=== PATIENT | female | born 1955 | race Caucasian/White ===

== ENCOUNTER 2019-12-27 07:59 | Outpatient (CLI) | payer MEDICARE, SELFPAY ==
--- NOTE | ~2019-12-27 | MM_ITS ---
EXAMINATION: MM screening [facility] BI w mauricio HISTORY: Screening mammogram TECHNIQUE: Craniocaudal and mediolateral oblique 3-D tomosynthesis images were obtained and synthetic 2-D images were generated. CAD analysis was submitted and interpreted. COMPARISON: 08/31/2018, 07/07/2017, 06/19/2016 BREAST PARENCHYMAL COMPOSITION: The breasts are almost entirely fatty. FINDINGS: There is no evidence of suspicious mass, calcification, or architectural distortion to sugg est malignancy in either breast. There has been no suspicious interval change. IMPRESSION: 1. No mammographic evidence of malignancy. 2. Recommend routine screening mammography in one year. BI-RADS Category 1: Negative Reviewed, dictated and finalized at location A.
--- NOTE | ~2019-12-27 | DEXA_ITS ---
Bone Density Report Name: Gisela Fisher Age: 64 Sex: Female Ethnicity: White Date of : 1955 Indication: postmenopausal; height loss; prior fracture; Referring Provider: Darlin Kingston Study: Bone densitometry was performed. Exam Date: December 27, 2019 Accession number: [id number] Bone Density: Region BMD T-score Z-score Classification AP Spine (L1, L2, L3) 0.736 -2.6 -0.8 Osteoporosis Femoral Neck (Left) 0.521 -3.0 -1.4 Osteoporosis Total Hip (Left) 0.647 -2.4 -1.1 Osteopenia Total Hip Bilateral Avg 0.627 -2.6 -1.3 Osteoporosis Femoral Neck (Right) 0.576 -2.5 -0.9 Osteoporosis Total Hip (Right) 0.606 -2.8 -1.5 Osteoporosis World Health Organization criteria for BMD impression classify patients as: Normal (T-score at or above -1.0), Osteopenia (T-score between -1.0 and -2.5), or Osteoporosis (T-score at or below -2.5). 10-year Fracture Risk: FRAX not reported because: Some T-score for Spine Total or Hip Total or Femoral Neck at or below -2.5 Clinical Information Provided by Patient: Has had a low trauma fracture Has used the following medications: Vitamin D Patient maximum height was 64 Menopause Age: 43 Drinks caffeinated beverages Onset of menses at age 11 Number of children 2 Impression: The patient has established osteoporosis, based on the Left Femoral Neck T-score and the existence of a prior fracture. The patient has risk factors, including: previous fracture. Discussion: HIGH RISK OF FRACTURE. BONE DENSITY IS UNDESIRABLY LOW AT ONE OR MORE SKELETAL SITES, CONSISTENT WITH POSTMENOPAUSAL OSTEOPOROSIS. This patient's lowest T-score, in a patient who has previously fractured, meets the World Health Organization's (WHO) criteria for severe osteoporosis. In untreated patients, the risk of osteoporotic fracture increases approximately two-fold for each 1.0 SD decrease in T-score. Low bone density is not the only risk factor for fracture; also consider factors such as patient's age, frailty or poor health, risk of falling, risk of injury, previous osteoporotic fracture, family history of osteoporosis, cigarette smoking, low body weight, etc. Not everyone with low bone mineral density has osteoporosis; osteomalacia and other metabolic bone disorders should also be considered. Patients who have osteoporosis should be evaluated for specific diseases and conditions (secondary causes) that may cause or contribute to bone loss. The [place] Association of Clinical Endocrinologists (AACE) and National Osteoporosis Foundation (NOF) recommend pharmacologic intervention for all postmenopausal women whose T-score is in this range. The patient should follow a healthful lifestyle (good nutrition with adequate calcium and vitamin D, and appropriate weight-bearing exercise). Follow-Up: Consider a repeat BMD and Vertebral Fra
== END 2019-12-27 08:00 | disposition home or self-care (01) ==
LOC: ANHIMG 08:06
PROVIDERS: PCP Physician Assistant; Visit Provider Physician Assistant
DX: Z12.31 Encounter for screening mammogram for malignant neoplasm of breast (principal); Z78.0 Asymptomatic menopausal state; M81.0 Age-related osteoporosis without current pathological fracture; M85.852 Other specified disorders of bone density and structure, left thigh
CPT/HCPCS: 77063; 77067; 77080

== ENCOUNTER 2021-03-20 10:24 | Outpatient (CLI) | payer MEDICARE, SELFPAY ==
--- NOTE | ~2021-03-20 | MM_ITS ---
EXAMINATION: MM screening [facility] BI w mauricio HISTORY: Screening mammogram TECHNIQUE: Craniocaudal and mediolateral oblique 3-D tomosynthesis images were obtained and synthetic 2-D images were generated. CAD analysis was submitted and interpreted. COMPARISON: 12/27/2019, 09/08/2018, 07/07/2017 bilateral digital screening mammogram examinations BREAST PARENCHYMAL COMPOSITION: The breasts are almost entirely fatty. FINDINGS: There is no evidence of suspicious mass, calcification, or architectural distortion to sugg est malignancy in either breast. There has been no suspicious interval change. IMPRESSION: 1. No mammographic evidence of malignancy. 2. Recommend routine screening mammography in one year. BI-RADS Category 1: Negative Reviewed, dictated and finalized at location A.
== END 2021-03-20 10:25 | disposition home or self-care (01) ==
LOC: ANHIMG 10:32
PROVIDERS: PCP Physician Assistant; Visit Provider Physician Assistant
DX: Z12.31 Encounter for screening mammogram for malignant neoplasm of breast (principal)
CPT/HCPCS: 77063; 77067

== ENCOUNTER 2023-02-21 23:14 | Observation (INO) | payer MEDICARE, SELFPAY ==
--- NOTE | ~2023-02-21 | XR_ITS ---
EXAMINATION: XR chest 1V portable DATE: 02/22/2023 02:01 INDICATION: Fever. TECHNIQUE: A single frontal view of the chest was obtained. COMPARISON: Chest 2 views 11/03/2018, CT abdomen and pelvis 11/03/2018 FINDINGS: There is no pneumonia, pleural effusion, or pneumothorax. The heart size is normal. IMPRESSION: 1. No acute cardiopulmonary disease. Reviewed, dictated and finalized at location A.
--- NOTE | ~2023-02-21 | US_ITS ---
EXAMINATION: US renal BI DATE: 02/22/2023 13:34 INDICATION: Pyelonephritis. TECHNIQUE: Multiple ultrasound grayscale images of the kidneys were obtained. COMPARISON: CT abdomen and pelvis 11/03/2018 FINDINGS: The right kidney measures 10.5 x 5.2 x 4.6 cm. The left kidney measures 9.6 x 4.1 x 4.8 cm. The kidne ys demonstrate normal parenchymal echogenicity. There is no hydronephrosis. The bladder is normal. IMPRESSION: 1. Normal kidneys. No hydronephrosis. Reviewed, dictated and finalized at location A.
[2023-02-21 23:31] VITALS: BP 135/89; PULSE 108; RESP 14; TEMP 36.8; O2SAT 97
[2023-02-21 23:44] VITALS: BP 164/131; PULSE 99; RESP 15; TEMP 37.2; O2SAT 97
--- NOTE | 2023-02-21 23:50 | ECG_ITS ---
Measurements Intervals [place] Rate: 91 P: 68 [place]: 140 QRS: 62 QRSD: 89 T: 44 QT: 333 QTc: 412 Interpretive Statements SINUS RHYTHM POSSIBLE LEFT ATRIAL ENLARGEMENT ST DEVIATION AND MODERATE T-WAVE ABNORMALITY, CONSIDER ANTERIOR ISCHEMIA BORDERLINE ECG NO PREVIOUS ECG AVAILABLE FOR COMPARISON Electronically Signed On 02-22-2023 15:38:12 CDT by Brandon Valente M.D.
[2023-02-22] VITALS (7 sets, daily range): BP systolic 132–165; BP diastolic 73–97; PULSE 81–96; RESP 14–18; TEMP 36.2–36.3; O2SAT 90–100; BMI 31.1
[2023-02-22 00:48] LABS: Basophils Percent Auto 0.6 % (0.2-1.2); Eosinophils Percent Auto 0.1 % (0-4.4); Hematocrit 40.5 % (37.0-47.0); Hemoglobin 12.9 g/dL (12.0-15.0); Immature Granulocyte Absolute 0.04 K/mm3 (0.00-0.031); Immature Granulocyte Percent A 0.6 % (0-0.5); Lymphocytes Absolute Auto 0.52 K/mm3 (0.9-3.2); Lymphocytes Percent Auto 7.2 % (18.3-44.2); Mean Corpuscular HGB Conc 31.9 g/dl (32-36); Mean Corpuscular Hemoglobin 29.4 pg (26-34); Mean Corpuscular Volume 92.3 fl (80-100); Mean Platelet Volume 9.3 fl (7.4-10.4); Monocytes Absolute Auto 0.7 K/mm3 (0.1-0.6); Monocytes Percent Auto 10.1 % (2.6-8.5); Neutrophils Absolute Auto 5.9 K/mm3 (1.3-6.7); Neutrophils Percent Auto 81.4 % (45.5-73.1); Platelet Count Result 169 k/mm3 (150-375); Red Blood Count 4.39 M/mm3 (4.2-5.4); Red Cell Distribution Width 14.3 % (11.5-14.5); White Blood Count 7.2 K/mm3 (4.5-10.0)
[2023-02-22 01:07] LABS: Alanine Aminotransferase 35 U/L (6-35); Albumin Level 3.8 g/dL (3.5-5.1); Alkaline Phosphatase 70 U/L (38-126); Anion Gap 6 mmol/L (8-16); Aspartate Amino Transferase 42 U/L (14-36); Bilirubin,Total 0.7 mg/dL (0.2-1.3); Blood Urea Nitrogen 7 mg/dL (7-17); Calcium 9.5 mg/dL (8.4-10.2); Carbon Dioxide 24 mmol/L (22-30); Chloride 97 mmol/L (98-107); Estimated CRCL calculation 63 ml/min; Estimated Glomerular Filt Rate > 60; Glucose 128 mg/dL (65-110); Lipase 97 U/L (23-300); Potassium 3.9 mmol/L (3.4-5.0); Sodium 127 mmol/L (137-145)
[2023-02-22 01:27] LABS: Add Urine Microscopic? YES; Appearance Urine Turbid (Clear); Bacteria Urine 2+ /hpf; Bilirubin Urine Negative (Negative); Blood Urine 1+ (Negative); Color Urine Yellow (Yellow); Glucose Urine UA Negative (Negative); Ketones Urine 2+ mg/dL (Negative); Leukocyte Esterase Ur 3+ LEU/UL (Negative); Need Manual Microscopic Reviewed; Nitrate Urine Negative (Negative); Non Pathogenic Casts 0-2; Protein Urine 2+ mg/dL (Negative); Specific Grav Ur 1.015 (1.001-1.035); Squamous Epithelial Cell Urine Many /hpf (Few); WBC Urine >100 /hpf
[2023-02-22] MEDS: ACETAMINOPHEN 500 MG TABLET 1000 MG PO (01:41)
[2023-02-22] MEDS: SODIUM CHLORIDE 0.9% IV 1,000 ML 999 ML IV CONT ×2 (01:42→01:56)
[2023-02-22] MEDS: ONDANSETRON INJ 4 MG/2 ML VIAL IV PUSH (01:42)
[2023-02-22] MEDS: FAMOTIDINE 20 MG/2 ML VIAL IV PUSH (01:43)
--- NOTE | 2023-02-22 01:58 | ED.GENADULT ---
HPI - General Adult General Chief complaint: Fever Stated complaint: fever, nausea, headache Time Seen by Provider: 02/21/23 23:47 History of Present Illness HPI narrative: this is a 67-year-old female presenting with 3 days of flu-like symptoms. Patient has been having fevers up to 102, headaches, left-sided flank pain nausea vomiting, decreased p.o. intake and diarrhea. She denies chest pain, URI symptoms shortness of breath or abdominal pain. Patient denies dysuria but has had kidney infections in the past that progressed to septicemia. Related Data Home Medications Medication Instructions Recorded Confirmed cyanocobalamin (vitamin B-12) 1,000 mcg IM MONTHLY 06/27/19 06/29/19 1,000 mcg/mL injection solution escitalopram oxalate 20 mg tablet 20 mg PO DAILY 06/27/19 06/29/19 trazodone 100 mg tablet 100 mg PO HS 06/27/19 06/29/19 Allergies Allergy/AdvReac Type Severity Reaction Status Date / Time No Known Allergies Allergy Unknown Verified 02/21/23 23:14 [facility] Past Medical History Medical History HTN (hypertension) Obesity Surgical History Surgical History H/O gastric bypass Exam Narrative: APPEARANCE: No apparent distress. Head: atraumatic. EYES: EOMI, NOSE: Atraumatic NECK: Trachea midline RESPIRATORY: No increased rate of breathing , clear to auscultation CARDIOVASCULAR: RRR, ABDOMINAL: Non-distended, soft nontender no guarding rebound, left CVA tenderness MUSCULOSKELETAl: No obvious deformities NEURO: Alert. Moving 4/4 extremities SKIN:: Warm, dry. Normal color PSYCHIATRIC: Normal affect Course Vital Signs Vital signs: Vital Signs Temperature 98.3 F 02/21/23 23:31 Pulse Rate 108 H 02/21/23 23:31 Respiratory Rate 14 02/21/23 23:31 Blood Pressure 135/89 02/21/23 23:31 Pulse Oximetry 97 02/21/23 23:31 Oxygen Delivery Room Air 02/21/23 23:31 Temperature 98.9 F 02/21/23 23:44 Pulse Rate 85 02/22/23 02:08 Respiratory Rate 18 02/22/23 02:08 Blood Pressure 165/97 H 02/22/23 02:08 Pulse Oximetry 98 02/22/23 02:08 Oxygen Delivery Room Air 02/21/23 23:31 Medical Decision Making MDM Narrative Medical decision making narrative: -Presentation: 67-year-old female presenting with flu-like symptoms and left-sided flank pain. 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 She lives alone. -Hx from independent Sources: renard Daniel @ bedside -Independent interpretation of studies: Urinalysis showed greater than 100 white blood cells, +3 leuk esterase and 2+ bacteria. Patient started on ceftriaxone. CBC normal. Metabolic panel showed hyponatremia and hypochloremia. Patient is being fluid resuscitated. Chest x-ray normal. Independent EKG interpretation: Rhythm [sinus], Rate [91], [place] -[normal], [place] -[normal], QRS [narrow], QTC [normal], T waves - nonspecific T-wave changes, ST Segments - [Negative for concerning elevations] Final interpretations: Normal sinus rhythm nonspecific T-wave changes, no EKG available for comparison -Discussion of Management/Consultants:Sandeep - Hospitalist -Interventions: 2 L normal saline, 1 g ceftriaxone, 1000 mg Tylenol, 4 mg Zofran, 20 mg Pepcid -Shared decision making / Disposition: I discussed admission versus trial of outpatient treatment. Given the patient's advanced age, that she lives alone, and has had a UTI that progressed to sepsis in the past we have opted for admission. Vital Signs Vital Signs: Vital Signs Temperature 98.3 F 02/21/23 23:31 Pulse Rate 108 H 02/21/23 23:31 Respiratory Rate 14 02/21/23 23:31 Blood Pressure 135/89 02/21/23 23:31 Pulse Oxim
[2023-02-22 02:45] LABS: Influenza A QL RT-PCR Negative (Negative); Influenza B QL RT-PCR Negative (Negative); RSV RNA, RT-PCR Negative (Negative); SARS-CoV-2 RNA PCR Negative (Negative)
--- NOTE | 2023-02-22 02:45 | PM.IMHP ---
H&P: HPI History of Present Illness Date/Time: 02/22/23 02:45 Chief Complaint: Generalized malaise Narrative: This is a 67-year-old female with past medical history significant for hypertension, obesity, patient presents to the emergency room due to 1 day of generalized malaise, poor appetite, nausea, back pain, chills, generalized weakness. Patient has been in her usual state of health prior to this denies any dysuria. In emergency room patient was found to have urinalysis significant for numerous WBCs present. PATIENT IS BEEN ADMITTED FOR FURTHER EVALUATION MANAGEMENT AND TREATMENT. Review of Systems Review of Systems: Generalized malaise, poor appetite, nausea, back pain, generalized weakness. Constitutional: Constitutional: Reports chills, Reports fatigue, Reports malaise, Reports poor appetite and Reports weakness Eyes: Eyes: Denies change in vision ENT: Denies dysphagia, Denies vertigo, Denies dizziness and Denies odynophagia Cardiovascular: Cardiovascular: Denies chest pain and Denies leg edema Respiratory: Respiratory: Denies cough Gastrointestinal: Gastrointestinal: Denies abdominal pain, Denies dyspepsia, Denies heartburn, Denies diarrhea, Reports nausea and Denies vomiting Genitourinary: Genitourinary: Denies dysuria and Reports flank pain Musculoskeletal: Musculoskeletal: Reports back pain and Reports myalgias Integumentary/Breasts: Skin/Breast: Denies rash Neurologic: Denies focal weakness and Denies Sensory deficit (Neuro) Psychiatric: Psychiatric: Reports no additional psychiatric complaints and Reports as per HPI Endocrine: Endocrine: Denies cold intolerance, Denies fatigue, Denies flushing, Denies heat intolerance, Denies polyphagia, Denies polydipsia and Denies palpitations Hematologic/Lymphatic: Hematologic/Lymphatic: Reports no additional hematologic/lymphatic complaints and Reports as per HPI Allergic/Immunologic: Allergic/Immunologic: Reports no additional allergic/immunologic complaints and Reports as per HPI PMFSH Past Medical History Medical History (Updated 02/22/23 @ 04:16 by Pedro Hopkins MD) HTN (hypertension) Obesity Surgical History Surgical History H/O gastric bypass Social History Social History Smoking status: Never smoker Alcohol intake: current Drinks per week: 2 Substance use type: does not use Lack of Transportation: No Lack of Food: Never True Current Housing: I Have Housing Concerned About Future Housing: No Difficulty Paying Gas/Electric Bills: No Difficulty Paying for Meds: No Currently Unemployed: No Education: Master's Degree or Higher Difficulty w/ Childcare or Family Care: No Spiritual care concerns: No Meds Home Medications and Allergies Home Medications Medication Instructions Recorded Confirmed Type escitalopram oxalate 20 mg tablet 20 mg PO DAILY 06/27/19 02/22/23 History trazodone 100 mg tablet 100 mg PO HS 06/27/19 02/22/23 History hydrochlorothiazide 25 mg tablet 25 mg PO DAILY 02/22/23 02/22/23 History Allergies Allergy/AdvReac Type Severity Reaction Status Date / Time No Known Allergies Allergy Unknown Verified 02/21/23 23:14 Vital Signs Vital Signs - 24 hr 02/21/23 23:31 02/21/23 23:44 02/22/23 02:08 Temperature 98.3 F 98.9 F Pulse Rate 108 H 99 85 Respiratory Rate 14 15 18 Blood Pressure 135/89 164/131 H 165/97 H Pulse Oximetry 97 97 98 Oxygen Delivery Room Air Exam Narrative: Patient is laying in a stretcher Const: General: comfortable, no acute distress, well developed, alert, awake and overweight Nutritional Appearance: overweight Orientation/consciousness: patient oriented x3 Other: Well-appearing HENMT: Head: normal to inspection, normocephalic and atraumatic Ears: hearing grossly normal bilaterally Face/Nose/Sinus: normal facial exam Face an
[2023-02-22] MEDS: ESCITALOPRAM OXALATE 10 MG TABLET 20 MG PO ×2 (03:38→20:16)
[2023-02-22] MEDS: traZODone HCL 50 MG TABLET 100 MG PO ×2 (03:39→20:16)
--- NOTE | 2023-02-22 03:59 | ADMGEN ---
This patient, Gisela Fisher, was admitted to 3 [facility] Surg Room 312-01 @0350. Patient/family oriented to hospital policies and general routines including ID bracelet, bed and alarms, visiting hours, pain management, procedures, bathroom and other care routines, personal items, smoking policy, room service/diet, and visiting hours. Information on how to activate the Rapid Response Team has been discussed. Patient/Family are encouraged to report perceived risks to care and to ask questions if they do not understand what they are told or what they should do.
[2023-02-22] MEDS: hydroCHLOROthiazide 25 MG TABLET PO (08:41)
[2023-02-22] MEDS: ENOXAPARIN 40 MG/0.4 ML SYRINGE SUB-Q (08:41)
[2023-02-22] MEDS: ACETAMINOPHEN 325 MG TABLET 650 MG PO ×2 (10:45→17:15)
--- NOTE | 2023-02-22 11:48 | PM.IMPN ---
Progress Note: A&P Assessment and Plan (1) Pyelonephritis: Code(s): N12 - Tubulo-interstitial nephritis, not specified as acute or chronic Status: Acute Assessment and Plan: Admit to regular medical floor Started on Rocephin (2) Acute dehydration: Code(s): E86.0 - Dehydration Status: Acute Assessment and Plan: Gentle hydration Push oral (3) HTN (hypertension): Code(s): I10 - Essential (primary) hypertension Status: Acute Assessment and Plan: Restart home meds as needed (4) Obesity: Code(s): E66.9 - Obesity, unspecified Status: Acute Assessment and Plan: Lifestyle and diet modifications Subjective Date/time seen: 02/22/23 11:48 Interval history: no complaints Exam Narrative: Patient is laying in a stretcher Const: General: comfortable, no acute distress, well developed, alert, awake and overweight Nutritional Appearance: overweight Orientation/consciousness: patient oriented x3 Other: Well-appearing HENMT: Head: normal to inspection, normocephalic and atraumatic Ears: hearing grossly normal bilaterally Face/Nose/Sinus: normal facial exam Face and sinus: normal facial exam Eyes: General: appearance normal, both eyes and all related structures Pupils: Equal, round and reactive pupils present EOM: EOMs intact bilaterally Neck: Neck: full ROM, no lymphadenopathy and no JVD Thyroid: thyroid normal Lymphatic: no lymphadenopathy noted Resp: Effort & Inspection: normal respiratory effort and able to speak in complete sentences Auscultation: clear to auscultation bilaterally Cardio: Jugular venous distension: no JVD Rate: regular rate Rhythm: regular rhythm Heart sounds: S1 normal heart sound present and S2 normal heart sound present : General: Yes CVA tenderness bilateral and Yes deferred Back/Spine/Pelvis: Back: CVA tenderness Skin: Rashes: no rashes Wounds: no wounds Neuro: General: patient oriented x3 and CN's II-XI intact bilaterally Cranial nerves: Yes CN's II-XII intact bilaterally and Yes Equal, round and reactive pupils present Cognition (Neuro): normal cognition Speech: normal speech Gait exam (Neuro): Normal gait present Motor exam (neuro): 5/5 motor strength present throughout Sensory Exam: No Sensory deficit (Neuro) Extrem: General: normal to inspection, full ROM, no joint enlargement and no pedal edema Objective Data Vital Signs Vital Signs: Vital Signs - 24 hr 02/21/23 23:31 02/21/23 23:44 02/22/23 02:08 Temperature 98.3 F 98.9 F Pulse Rate 108 H 99 85 Respiratory Rate 14 15 18 Blood Pressure 135/89 164/131 H 165/97 H Pulse Oximetry 97 97 98 Oxygen Delivery Room Air 02/22/23 03:40 02/22/23 05:50 02/22/23 08:50 Temperature 97.3 F L Pulse Rate 94 89 96 Respiratory Rate 15 18 Blood Pressure 158/88 H 146/86 H Pulse Oximetry 100 98 95 Oxygen Delivery Room Air 02/22/23 08:00 Temperature Pulse Rate Respiratory Rate Blood Pressure Pulse Oximetry Oxygen Delivery Room Air Intake/Output Intake/Output: Intake & Output 02/19/23 02/20/23 02/21/23 02/22/23 23:59 23:59 23:59 23:59 Intake Total 2290 Balance 2290 Meds/Results Medications: Active Medications Generic Name Dose Route Start Last Admin Trade Name Andiq PRN Reason Stop Dose Admin Acetaminophen 650 mg 02/22/23 09:57 02/22/23 10:45 Acetaminophen 325 Mg Tablet PO 650 mg Q6H PRN Administration Mild Pain (1-3) or Fever Enoxaparin Sodium 40 mg 02/22/23 09:00 02/22/23 08:41 Enoxaparin 40 Mg/0.4 Ml Syringe SUB-Q 40 mg DAILY JEFF Administration Escitalopram Oxalate 20 mg 02/22/23 21:00 Escitalopram Oxalate 10 Mg Tablet PO HS JEFF Hydrochlorothiazide 25 mg 02/22/23 09:00 02/22/23 08:41 Hydrochlorothiazide 25 Mg Tablet PO 25 mg DAILY JEFF Administration Ceftriaxone Sodium 1 gm in 50 mls @ 100 mls/hr 02/23/23 02:00 Rocephin 1 Gm/Ns 50 Ml
[2023-02-22 17:19] LABS: Sodium 128 mmol/L (137-145)
[2023-02-22 17:40] LABS: Anion Gap 2 mmol/L (8-16); Blood Urea Nitrogen 9 mg/dL (7-17); Calcium 9.2 mg/dL (8.4-10.2); Carbon Dioxide 30 mmol/L (22-30); Chloride 96 mmol/L (98-107); Estimated CRCL calculation 63 ml/min; Estimated Glomerular Filt Rate > 60; Glucose 93 mg/dL (65-110); Potassium 3.8 mmol/L (3.4-5.0)
[2023-02-23 05:40] VITALS: BP 148/75; PULSE 80; RESP 12; TEMP 36.1; O2SAT 95
[2023-02-23 06:23] LABS: Anion Gap 3 mmol/L (8-16); Blood Urea Nitrogen 6 mg/dL (7-17); Carbon Dioxide 28 mmol/L (22-30); Chloride 100 mmol/L (98-107); Estimated CRCL calculation 63 ml/min; Estimated Glomerular Filt Rate > 60; Glucose 97 mg/dL (65-110); Potassium 3.4 mmol/L (3.4-5.0); Sodium 131 mmol/L (137-145)
[2023-02-23 08:00] VITALS: O2SAT 95
[2023-02-23] MEDS: hydroCHLOROthiazide 25 MG TABLET PO (08:01)
[2023-02-23] MEDS: ENOXAPARIN 40 MG/0.4 ML SYRINGE SUB-Q (08:01)
--- NOTE | 2023-02-23 11:01 | PM.IMPN ---
Progress Note: A&P Assessment and Plan (1) Pyelonephritis: Code(s): N12 - Tubulo-interstitial nephritis, not specified as acute or chronic Status: Acute Assessment and Plan: Admit to regular medical floor Started on Rocephin AWAIT CULTURES Ultrasound noted (2) Acute dehydration: Code(s): E86.0 - Dehydration Status: Acute Assessment and Plan: Gentle hydration Push oral (3) HTN (hypertension): Code(s): I10 - Essential (primary) hypertension Status: Acute Assessment and Plan: Restart home meds as needed (4) Obesity: Code(s): E66.9 - Obesity, unspecified Status: Acute Assessment and Plan: Lifestyle and diet modifications Subjective Date/time seen: 02/23/23 11:01 Interval history: Tolerating antibiotics. Flank pain is better. Still having some left-sided pain. Ultrasound noted Exam Narrative: Patient is laying in a stretcher Const: General: comfortable, no acute distress, well developed, alert, awake and overweight Nutritional Appearance: overweight Orientation/consciousness: patient oriented x3 Other: Well-appearing HENMT: Head: normal to inspection, normocephalic and atraumatic Ears: hearing grossly normal bilaterally Face/Nose/Sinus: normal facial exam Face and sinus: normal facial exam Eyes: General: appearance normal, both eyes and all related structures Pupils: Equal, round and reactive pupils present EOM: EOMs intact bilaterally Neck: Neck: full ROM, no lymphadenopathy and no JVD Thyroid: thyroid normal Lymphatic: no lymphadenopathy noted Resp: Effort & Inspection: normal respiratory effort and able to speak in complete sentences Auscultation: clear to auscultation bilaterally Cardio: Jugular venous distension: no JVD Rate: regular rate Rhythm: regular rhythm Heart sounds: S1 normal heart sound present and S2 normal heart sound present : General: Yes CVA tenderness bilateral and Yes deferred Back/Spine/Pelvis: Back: CVA tenderness Skin: Rashes: no rashes Wounds: no wounds Neuro: General: patient oriented x3 and CN's II-XI intact bilaterally Cranial nerves: Yes CN's II-XII intact bilaterally and Yes Equal, round and reactive pupils present Cognition (Neuro): normal cognition Speech: normal speech Gait exam (Neuro): Normal gait present Motor exam (neuro): 5/5 motor strength present throughout Sensory Exam: No Sensory deficit (Neuro) Extrem: General: normal to inspection, full ROM, no joint enlargement and no pedal edema Objective Data Vital Signs Vital Signs: Vital Signs - 24 hr 02/22/23 14:00 02/22/23 21:59 02/22/23 20:00 Temperature 97.2 F L 97.1 F L Pulse Rate 88 81 81 Respiratory Rate 18 14 14 Blood Pressure 147/79 H 132/73 Pulse Oximetry 90 96 96 Oxygen Delivery Room Air 02/23/23 05:40 02/23/23 08:00 Temperature 96.9 F L Pulse Rate 80 Respiratory Rate 12 Blood Pressure 148/75 H Pulse Oximetry 95 95 Oxygen Delivery Room Air Intake/Output Intake/Output: Intake & Output 02/20/23 02/21/23 02/22/23 02/23/23 23:59 23:59 23:59 23:59 Intake Total 5050 1230 Balance 5050 1230 Meds/Results Medications: Active Medications Generic Name Dose Route Start Last Admin Trade Name Freq PRN Reason Stop Dose Admin Acetaminophen 650 mg 02/22/23 09:57 02/22/23 17:15 Acetaminophen 325 Mg Tablet PO 650 mg Q6H PRN Administration Mild Pain (1-3) or Fever Enoxaparin Sodium 40 mg 02/22/23 09:00 02/23/23 08:01 Enoxaparin 40 Mg/0.4 Ml Syringe SUB-Q 40 mg DAILY JEFF Administration Escitalopram Oxalate 20 mg 02/22/23 21:00 02/22/23 20:16 Escitalopram Oxalate 10 Mg Tablet PO 20 mg HS JEFF Administration Hydrochlorothiazide 25 mg 02/22/23 09:00 02/23/23 08:01 Hydrochlorothiazide 25 Mg Tablet PO 25 mg DAILY JEFF Administration Ceftriaxone Sodium 1 gm in 50 mls @ 100 mls/hr 02/23/23 02:00 02/23/23 01:40 Rocephin 1 Gm/
[2023-02-23] MEDS: ACETAMINOPHEN 325 MG TABLET 650 MG PO (12:38)
[2023-02-23 14:00] VITALS: BP 143/74; PULSE 76; RESP 16; TEMP 36.6; O2SAT 96
[2023-02-23] MEDS: IBUPROFEN 400 MG TABLET 800 MG PO (15:03)
[2023-02-23] MEDS: traZODone HCL 50 MG TABLET 100 MG PO (20:50)
[2023-02-23] MEDS: ESCITALOPRAM OXALATE 10 MG TABLET 20 MG PO (20:50)
[2023-02-23 22:00] VITALS: BP 147/77; PULSE 79; RESP 16; TEMP 36.1; O2SAT 98
[2023-02-24 05:40] VITALS: BP 149/85; PULSE 64; RESP 14; TEMP 36.1; O2SAT 98
[2023-02-24] MEDS: ENOXAPARIN 40 MG/0.4 ML SYRINGE SUB-Q (08:31)
[2023-02-24] MEDS: hydroCHLOROthiazide 25 MG TABLET PO (08:31)
[2023-02-24] MEDS: ACETAMINOPHEN 325 MG TABLET 650 MG PO (10:59)
--- NOTE | 2023-02-24 12:31 | PM.DS ---
DS: Admitting Diagnosis Discharge Date 02/24/23 Admitting Diagnosis Fever, nausea and headache DS: Discharge Diagnosis Discharge Diagnosis (1) Pyelonephritis: Code(s): N12 - Tubulo-interstitial nephritis, not specified as acute or chronic Status: Acute (2) Acute dehydration: Code(s): E86.0 - Dehydration Status: Acute (3) HTN (hypertension): Code(s): I10 - Essential (primary) hypertension Status: Acute (4) Hyponatremia: Code(s): E87.1 - Hypo-osmolality and hyponatremia Status: Acute DS: Summary Hospital Course Reason for hospitalization: 67yo female with HTN here for fever, nausea and headache. Please see H&P for details. Hospital Course: Patient presents with 3 days history of fever, chills, left flank pain, nausea, vomiting and diarrhea. She denied having dysuria. EKG showed normal sinus rhythm with ST deviation and moderate T-wave changes in the anterior leads. She denied chest pain or shortness of breath on admission. CBC was normal on admission. Sodium was low 127 but on recheck this climbed to 131. Low sodium felt related to HCTZ and/or antidepressive medications. Electrolytes otherwise within normal limits. LFTs normal except for an AST slightly elevated 42. Lipase was normal. Urinalysis was negative for nitrates and showed 3+ leukocyte esterase and greater than 100 white cells but many squamous epithelial cells with 2+ bacteria. Patient states that she felt the urine was collected inappropriately and was not a clean catch. Influenza, RSV and COVID were negative. Chest x-ray was clear. Renal ultrasound showed normal kidneys and no hydronephrosis. The bladder appeared normal. Urine culture showed mixed genital linda consistent with contaminated specimen. She was started on Rocephin. She had clinical improvement. Her back pain resolved. Plan to continue antibiotic treatment for pyelonephritis. She overall did well and was able to be discharged home on 02/24/2023. Status at Discharge Cognitive/behavioral status at discharge: stable Time Spent with Patient Time attestation: Total time spent providing and/or coordinating discharge services: 34 minutes Time spent: Greater than 30 minutes Exam Narrative: AF 96.9 149/85 64 14 98% ra Gen - NARD Chest - CTA bilaterally, nml RR CV - RRR S1/S2 Abd - Soft, NT/ND, Positive BS Back - no CVA tenderness Ext - No pedal edema Psych - Nml mood and affect Skin - Warm and dry Discharge Plan Discharge Attending physician on discharge: Jean Marie Kohli Discharging Clinician: Jean Marie Kohli Anticipated Discharge Date/Time: 02/24/23 12:45 Patient Disposition: Home, Self-Care Activity: as tolerated Diet: heart healthy Discharge Instructions: Please complete your antibiotic course even if you are starting to feel well. Contact your doctor or call 911 and come to the Emergency Room if you have any recurrent fevers or other worrisome symptoms. Avoid NSAIDs (ibuprofen, naproxen, Aleve). Tylenol is safe to take. Follow-up with your primary care provider in 1-2 weeks. Please call for appointment. Thank you for using [facility] for your health care needs. Patient Instructions: Antibiotic Form Stand Alone Forms: General Discharge Information Follow-up/Referrals: Darlin Kingston, PAC [Primary Care Provider] - Call for Appointment Discharge Medications: New cefdinir 300 mg capsule 300 mg PO Q12H 7 Days Qty: 14 0RF Rx Instructions: start on 02/25/23 Continued trazodone 100 mg tablet 100 mg PO HS escitalopram oxalate 20 mg tablet 20 mg PO DAILY hydrochlorothiazide 25 mg tablet 25 mg PO DAILY Other Ambulatory Orders: Basic Metabolic Panel (Routine) Timeframe: 1 Week Location: Determined by Patient Ordered By: Jean Marie Kohli Date of admission: 02/22/23 02:47 Primary Care Provider: Darlin Kingston Adm
== END 2023-02-24 13:45 | disposition home or self-care (01) ==
LOC: ANHED 02-22 02:46 → ANH3MEDSUR 02-23 13:50
PROVIDERS: Chiropractor; Admitting Provider Internal Medicine; Emergency Provider Emergency Medicine; PCP Physician Assistant; Visit Provider Internal Medicine
DX: N12 Tubulo-interstitial nephritis, not specified as acute or chronic (principal); E86.0 Dehydration; I10 Essential (primary) hypertension; E87.1 Hypo-osmolality and hyponatremia; E66.9 Obesity, unspecified; Z98.84 Bariatric surgery status; M54.9 Dorsalgia, unspecified; R63.0 Anorexia; R19.7 Diarrhea, unspecified; R94.31 Abnormal electrocardiogram [ECG] [EKG]; Z68.31 Body mass index [BMI] 31.0-31.9, adult; Z20.822 Contact with and (suspected) exposure to COVID-19; F10.90 Alcohol use, unspecified, uncomplicated; Z79.899 Other long term (current) drug therapy
CPT/HCPCS: 36415; 71045; 76775; 80048; 80053; 81001; 83690; 85025; 87086; 87088; 87637; 93005; 96361; 96365; 96372; 96375; 99285; A9270; G0378; J0696; J1650; J2405; J7030

== ENCOUNTER 2023-03-30 11:53 | Emergency (ER) | payer MEDICARE, SELFPAY ==
--- NOTE | ~2023-03-30 | XR_ITS ---
EXAMINATION: XR chest 2V DATE: 03/30/2023 12:26 INDICATION: Cough TECHNIQUE: PA and lateral views of the chest are obtained. COMPARISON: 02/22/2023; CT, 11/03/2018 FINDINGS: The lungs are free of acute opacities. No pleural effusion or pneumothorax. The cardiomedia stinal silhouette is normal. There is moderate thoracic spondylosis. There is anterior wedging of mul tiple midthoracic vertebral bodies with exaggerated kyphosis. 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 Surgical clips in th e right upper quadrant are likely from prior cholecystectomy. There are partially imaged changes of p osterior fusion of the lumbar spine. IMPRESSION: 1. No acute cardiopulmonary abnormality. Reviewed, dictated and finalized at location L.
[2023-03-30 12:08] VITALS: BP 139/74; PULSE 86; RESP 20; TEMP 36.4; O2SAT 100
--- NOTE | 2023-03-30 12:23 | ED.URI ---
HPI - URI/Sore Throat General Chief Complaint: Upper Respiratory Infection Stated Complaint: Cough Source: patient Mode of arrival: ambulatory Limitations: no limitations History of Present Illness HPI Narrative: 67-year-old female presented for complaint of nonproductive cough for 2 weeks. States cough started after vacation to [place], and her significant other has bilateral pneumonia dx 2 days ago. Endorses some GI upset since [place] as well. Denies sob, wheezing, fever or lethargy. Not taking anything for symptoms. Related Data Home Medications Medication Instructions Recorded Confirmed escitalopram oxalate 20 mg tablet 20 mg PO DAILY 06/27/19 03/30/23 trazodone 100 mg tablet 100 mg PO HS 06/27/19 03/30/23 Allergies Allergy/AdvReac Type Severity Reaction Status Date / Time No Known Allergies Allergy Unknown Verified 03/30/23 11:55 Review of Systems Review of Systems: CONSTITUTIONAL: Denies body aches, fever, chills, or sweats. EYES: Denies visual changes, redness, or discharge. ENT: Denies rhinorrhea, congestion, sore throat, or otalgia. CARDIOVASCULAR: Denies chest pain, palpitations, or edema. RESPIRATORY: Reports cough, denies sob, wheezing. GASTROINTESTINAL: Denies abdominal pain, reports nausea, diarrhea. GENITOURINARY: Denies dysuria or hematuria. SKIN: Denies rash, itching, or wounds. MUSCULOSKELETAL: Denies back pain, joint pain, or myalgia. NEUROLOGIC: Denies headache, numbness, tingling, or weakness. 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 Degenerative disc disease Depression Fibromyalgia Generalized anxiety disorder HTN (hypertension) Obesity Osteoporosis Vitamin B12 deficiency Vitamin D deficiency Surgical History Surgical History H/O gastric bypass History of cervical spinal surgery History of lumbosacral spine surgery History of microdiscectomy History of surgical removal of ganglion cyst History of tonsillectomy Hx of total adrenalectomy Family History Family History Mother Hypertension Lymphocytic leukemia Social History Social History Smoking status: Never smoker Alcohol intake: current Drinks per week: 2 Substance use type: does not use Lack of Transportation: No Lack of Food: Never True Current Housing: I Have Housing Concerned About Future Housing: No Difficulty Paying Gas/Electric Bills: No Difficulty Paying for Meds: No Currently Unemployed: No Education: Master's Degree or Higher Difficulty w/ Childcare or Family Care: No Living arrangements: with family Occupation/Education: retired Gender identity (if verbalized by the patient): Female Sexual Orientation (if Verbalized by the Patient): Straight or Heterosexual Spiritual care concerns: No Comments At time of signature, I have reviewed and agree with nursing past medical, surgical, social and family history unless otherwise noted. Please see nursing chart for further information. There is no relevant family history pertinent to the presenting complaint Exam Narrative: GENERAL: Well-appearing, in no acute distress. EYES: EOMI. No redness or drainage. Conjunctivae normal. ENT: Mucous membranes pink and moist. No rhinorrhea. TMs normal bilaterally. Throat normal. Uvula midline. NECK: Normal AROM. Supple. CHEST: No respiratory distress. LCTAB. 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 HEART: Regular rate and rhythm. No murmur appreciated. ABDOMEN: Soft, nontender, nondistended, normal active bowel sounds. EXTREMITIES: Normal range of motion. No edema. SKIN: Warm, dry, no rash. Capillary refill normal. Normal skin turgor. NE
== END 2023-03-30 12:37 | disposition home or self-care (01) ==
PROVIDERS: Emergency Provider Nurse Practitioner Family; PCP Physician Assistant
DX: J40 Bronchitis, not specified as acute or chronic (principal); M79.7 Fibromyalgia; I10 Essential (primary) hypertension; M81.0 Age-related osteoporosis without current pathological fracture; E66.9 Obesity, unspecified; Z68.31 Body mass index [BMI] 31.0-31.9, adult; Z98.84 Bariatric surgery status; F41.1 Generalized anxiety disorder; F32.A Depression, unspecified; E24.9 Cushing's syndrome, unspecified
CPT/HCPCS: 71046; 99213; G0463

== ENCOUNTER 2023-04-13 10:27 | Outpatient (CLI) | payer MEDICARE, SELFPAY ==
--- NOTE | ~2023-04-13 | MM_ITS ---
EXAMINATION: MM screening [facility] BI w mauricio HISTORY: Screening mammogram TECHNIQUE: Craniocaudal and mediolateral oblique 3-D tomosynthesis images were obtained and synthetic 2-D images were generated. CAD analysis was submitted and interpreted. COMPARISON: 03/20/2021, 12/27/2019, 09/08/2018 BREAST PARENCHYMAL COMPOSITION: The breasts are almost entirely fatty. FINDINGS: No suspicious mass, calcification, or architectural distortion are identified in either crispin ast to suggest malignancy. There has been no suspicious interval change. IMPRESSION: 1. No mammographic evidence of malignancy. 2. Recommend routine screening mammography in one year. BI-RADS Category 1: Negative Reviewed, dictated and finalized at location A.
== END 2023-04-13 10:28 | disposition home or self-care (01) ==
PROVIDERS: PCP Family Medicine; Visit Provider Physician Assistant
DX: Z12.31 Encounter for screening mammogram for malignant neoplasm of breast (principal)
CPT/HCPCS: 77063; 77067

== ENCOUNTER 2024-07-13 15:17 | Emergency (ER) | payer MEDICARE, SELFPAY ==
[2024-07-13 15:33] VITALS: BP 146/72; PULSE 74; RESP 18; TEMP 36; O2SAT 100
--- NOTE | 2024-07-13 16:01 | ED_ITS ---
HPI - Skin/Abscess/Foreign Bdy General Chief complaint: Skin/Abscess/Foreign Body Stated complaint: rash Time Seen by Provider: 07/13/24 16:01 Source: patient, RN notes reviewed and old records reviewed Mode of arrival: ambulatory Limitations: no limitations History of Present Illness HPI narrative: Patient presents with complaint of itchy rash. She reports that rash began on the scalp couple of months ago. She began using ketoconazole shampoo, does not feel this ever really helped. She is concerned now because the rash has spread to the trunk, both anterior and posterior. She has not been taking anything for her symptoms. She reports that itching is getting worse, states this is particularly problematic at night. She denies any change in lotions, soaps, detergents. She voices no other concerns or complaints at this time Related Data Allergies Allergy/AdvReac Type Severity Reaction Status Date / Time No Known Allergies Allergy Unknown Verified 07/13/24 15:31 Review of Systems Review of Systems: All systems reviewed & are unremarkable except as noted in HPI and below Constitutional: Constitutional: Reports no additional constitutional complaints ENT: Reports system reviewed and no additional complaints, except as documented Cardiovascular: Cardiovascular: Reports no additional cardiovascular complaints Respiratory: Respiratory: Reports no additional respiratory complaints Gastrointestinal: Gastrointestinal: Reports no additional gastrointestinal complaints Integumentary/Breasts: Skin/Breast: Reports system reviewed and no additional complaints, except as docu and Reports as per HPI [facility] Past Medical History Medical History 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 Degenerative disc disease Depression Fibromyalgia Generalized anxiety disorder HTN (hypertension) Obesity Osteoporosis Vitamin B12 deficiency Vitamin D deficiency Surgical History Surgical History Hx of total adrenalectomy History of lumbosacral spine surgery History of microdiscectomy History of cervical spinal surgery History of surgical removal of ganglion cyst History of tonsillectomy H/O gastric bypass Family History Family History Mother Hypertension Lymphocytic leukemia Social History Social History Smoking status: Never smoker Alcohol intake: current Drinks per week: 2 Substance use type: does not use Do You Feel Safe in your Home?: Yes Lack of Transportation: No Lack of Food: Never True Current Housing: I Have Housing Concerned About Future Housing: No Difficulty Paying Gas/Electric Bills: No Difficulty Paying for Meds: No Currently Unemployed: No Education: Master's Degree or Higher Difficulty w/ Childcare or Family Care: No Living arrangements: with family Occupation/Education: retired Gender identity (if verbalized by the patient): Female Sexual Orientation (if Verbalized by the Patient): Straight or Heterosexual Spiritual care concerns: No Comments At the time of my signature, I reviewed and agree with the nursing past medical, surgical, social, and family history. There is no relevant family history pertinent to the patient complaint. Exam Const: General: cooperative, no acute distress, alert and awake Orientation/consciousness: oriented to person, oriented to place and oriented to time HENMT: Head: normal to inspection Mouth: Yes moist mucous membranes Resp: Effort & Inspection: normal respiratory effort and able to speak in complete sentences Auscultation: clear to auscultation bilaterally, no crackles, no rales, no rhonchi and no wheezes Cardio: Palpation: normal PMI Rate: regular rate Rhythm: regular rhythm Heart sounds: S1 normal heart sound present and S2 normal heart sound present Skin: Rashes: rashes noted ( maculopapular rash to anterior and posterior trunk) multiple locations Neuro: General: oriented to person, oriented to place and oriented to time Cranial nerves: Yes CN's II-XII intact bilaterally Psych: Appearance: grossly normal Thought process: Normal thought process present Insight: Good insight present (Psych) Judgement: Good judgement present (Psych) Course Course Level of Care: Express Care Visit Vital Signs Vital signs: Vital Signs Temperature 96.8 F L 07/13/24 15:33 Pulse Rate 74 07/13/24 15:33 Respiratory Rate 18 07/13/24 15:33 Blood Pressure 146/72 H 07/13/24 15:33 Pulse Oximetry 100 07/13/24 15:33 Oxygen Delivery Room Air 07/13/24 15:33 Temperature 96.8 F L 07/13/24 15:33 Pulse Rate 74 07/13/24 15:33 Respiratory Rate 18 07/13/24 15:33 Blood Pressure 146/72 H 07/13/24 15:33 Pulse Oximetry 100 07/13/24 15:33 Oxygen Delivery Room Air 07/13/24 15:33 Reviewed MDM - Skin/Abscess/Foreign Bdy MDM Narrative Medical decision making narrative: patient with rash, fairly widespread. Start prednisone, topical prescribed as well. Patient has follow-up scheduled with Dermatology. She was advised to keep this appointment. Discharge instructions reviewed with patient, as well as provided in writing per nursing staff. The instructions also include specific and strict return/GO TO THE ER as well as f/u information. All questions have been answered, and the patient deny any further questions with discharge and discharge plan. Some parts of this dictation were generated by voice recognition software and may contain typographical and/or grammatical inaccuracies. Differential Diagnosis Differential diagnosis: Likely viral exanthem, dermatophytosis, urticaria, allergic reaction to drug, eczema and insect bites Medical Records Attestation: I reviewed the patient's medical records. Discharge Plan Discharge Clinical Impression: Dermatitis Patient Disposition: Home, Self-Care Condition: Stable Instructions: Antibiotic Form, Dermatitis (ED) Additional Instructions: Take medication as prescribed. Follow with primary care provider. Emergency department for new or worse symptoms. Patient Language: Sinhala Prescriptions: New prednisone 50 mg tablet 50 mg PO DAILY Qty: 5 0RF mometasone 0.1 % cream 1 applic topical DAILY PRN (Reason: rash) Qty: 45 0RF No Action trazodone 100 mg tablet See Rx Instructions .ROUTE .COMPLEX Qty: 90 3RF Dose Instruction: TAKE 1 TABLET BY MOUTH AT BEDTIME Rx Instructions: TAKE 1 TABLET BY MOUTH AT BEDTIME escitalopram oxalate 20 mg tablet See Rx Instructions .ROUTE .COMPLEX Qty: 90 3RF Dose Instruction: TAKE 1 TABLET BY MOUTH ONCE DAILY Rx Instructions: TAKE 1 TABLET BY MOUTH ONCE DAILY losartan 50 mg tablet See Rx Instructions .ROUTE .COMPLEX Qty: 90 1RF Dose Instruction: TAKE 1 TABLET BY MOUTH DAILY Rx Instructions: TAKE 1 TABLET BY MOUTH DAILY ketoconazole 2 % shampoo 1 applic topical 2XW Qty: 120 0RF Follow-up/Referrals: Ruben Mahmood MD [Primary Care Provider] - 1 Week Time of Disposition: 16:11
== END 2024-07-13 16:12 | disposition home or self-care (01) ==
PROVIDERS: Emergency Provider Nurse Practitioner Family; PCP Family Medicine
DX: L30.9 Dermatitis, unspecified (principal); E24.9 Cushing's syndrome, unspecified; M79.7 Fibromyalgia; I10 Essential (primary) hypertension; E66.9 Obesity, unspecified; M81.0 Age-related osteoporosis without current pathological fracture
CPT/HCPCS: 99213; G0463

== ENCOUNTER 2024-08-17 15:13 | Outpatient (CLI) | payer MEDICARE, SELFPAY ==
--- NOTE | ~2024-08-17 | MM_ITS ---
EXAMINATION: MM screening aishwarya BI w mauricio HISTORY: Screening TECHNIQUE: Craniocaudal and mediolateral oblique 3-D tomosynthesis images were obtained and synthetic 2-D images were generated. CAD analysis was submitted and interpreted. COMPARISON: Comparison to multiple prior studies sequentially, with oldest reviewed study dated 03/2016. BREAST PARENCHYMAL COMPOSITION: Not dense: There are scattered areas of fibroglandular density. FINDINGS: There is no evidence of suspicious mass, calcification, or architectural distortion to sugg est malignancy in either breast. There has been no suspicious interval change. IMPRESSION: 1. No mammographic evidence of malignancy. 2. Recommend routine screening mammography in one year. BI-RADS Category 1: Negative Reviewed, dictated and finalized at location B. HUMOR VENDOR
--- OUTSIDE RECORDS SUMMARY | 2024-08-17 15:20 | XMS_ITS | Clinical Summary ---
Author Organization [facility] Address [address] [place] [id number] Care Team Providers Care Design Engineer Marine Equipment Name Role Phone Unavailable Primary Care Provider Unavailabl e Social History Tobacco Use Types Packs/Day Years Used Date Smoking Tobacco: Never Assessed Comments Unknown Sex and Gender Information Value Date Recorded Sex Assigned at Not on file Legal Sex Female 7:53 PM CDT Gender Identity Not on file Sexual Orientation Not on file Plan of Treatment Health Maintenance Due Date Last Done Comments Colorectal Cancer Screening Colonoscopy (10 Years) 1953 Hepatitis C 1971 DTaP, Tdap and Td Vaccines ( 1 - Tdap) 1972 Mammogram Screening 1993 Zoster Vaccines (1 of 2) 2003 Dexa Scan (General) 2018 Pneumococcal Vaccine: 65+ Ye ars (1 of 1 - PCV) 2018 COVID-19 Vaccine (2023-2 5 season) 2024 Influenza Adult (#1) 2024 RSV Immunization or 60+ Years (1 - 1-dose 75+ series) 2028 Meningococcal B Vaccine Aged Out No l onger eligible based on patient's age to complete this topic Meningococcal Vaccine Aged Out No stanley wale eligible based on patient's age to complete this topic RSV Immunizations Under 20 Months Aged Out No longer eligible based on patient's age to complete this topic
--- OUTSIDE RECORDS SUMMARY | 2024-08-17 15:21 | XMS_ITS | Clinical Summary ---
Author Organization [facility] Address [address] [place] [address] Care Team Providers Care Police Manager Name Role Phone Ruben Mahmood MD Primary Care Provider Allergies Active Allergy Reactions Criticality Noted Date Comments Mold Prochlorperazine Other (See comments) Low Reaction: NASAL CONGESTION, Medications omega-3s/dha/ep a/fish oil/D3 (VITAMIN-D + OMEGA-3 ORAL) 400 Units daily Active azelastine-flut icasone (Dymista) 137-50 mcg/spray spray,non-aeros ol 2 (two) times a day 07/30/2016 Active escitalopram (LEXAPRO) 10 mg tablet daily Active traZODone (DESYREL) 300 mg tablet Active gabapentin (NEURONTIN) 100 mg capsule Take 1 capsule (100 mg total) by mouth 3 (three) times a day 90 capsule 2 10/16/2020 Active Active Problems Problem Noted Date Diagnosed Date Obesity with body mass index 30 or greater 11/13 Inder's syndrome 07/29/2016 Hypertension 06/09/2016 Palpitations 06/09/2016 Increased thirst 06/09/2016 Overview (10/22/2017): Description: mouth always dry Increased frequency of urination 06/09/2016 Overview (10/22/2017): Description: nighttime 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 Meningioma 09/12/2010 Degeneration of intervertebral disc of lumbar re gion 09/12/2010 Immunizations Name Administration Dates Next Due Influenza, Quadrivalent, Majo l Culture-based MDCK, Preservative Free, Antibiotic Free, Intramuscular 04/25/2018 Influenza, Quadrivalent, Spl it, Intramuscular 04/16/2016 Influenza, Trivalent, High D ose, Split, Preservative Free, Intramuscular 05/02/2019 Influenza, Trivalent, IM (MDV) 7,05/02/2015,04/09/2014,04/04 Influenza, Trivalent, Preser vative Free, Intramuscular 04/03/2020,04/27/2017,04/11/2016,05/15 Pfizer SARS-CoV-2 Monovalent Vaccination (12+ Yrs) PURPLE 09/15/2020,08/23/2020 Pneumococcal Polysaccharide PPV23 09/08/2018 ZOSTER Recombinant 06/11/2020,04/03/2020 Family History Medical History Relation Name Comments Cancer Mother Hypertension Mother Family history of hypertension - (Added by TW Conv) Leukemia Mother Family history of leukemia - (Added by TW Conv) Relation Name Status Comments Mother Social History Tobacco Use Types Packs/Day Years Used Date Smoking Tobacco: Former Tobacco Cessation:Counseling Given: No Personal Safety Answer Date Recorded Getting School Help Needed Not on file 09/06 Comments Unknown Sex and Gender Information Value Date Recorded Sex Assigned at Not on file Legal Sex Female 12:21 AM LICENSED ACUPUNCTURIST Gender Identity Not on file Sexual Orientation Not on file Obstetrics History Last Filed Vital Signs Vital Sign Reading Time Taken Comments Blood Pressure 143/84 10/16/2020 10:00 AM CDT Pulse 80 10/16/2020 10:00 AM CDT Temperature 36.6 C (97.8 F) 06/18/2017 7:28 AM LICENSED ACUPUNCTURIST Respiratory Rate - - Oxygen Saturation 100% 06/18/2017 7:28 AM LICENSED ACUPUNCTURIST Inhaled Oxygen Concentration - - Weight 73 kg (161 lb) 10/16/2020 10:00 AM CDT Height 156.2 cm (5' 1.5 ) 10/16/2020 10:00 AM CD T Body Mass Index 29.93 10/16/2020 10:00 AM CDT Plan of Treatment Not on file [facility] MEDICARE Care Teams Police Manager Relationship Specialty Start Date End Date Ruben Mahmood MD [address] [place] [address] PCP - General 11/13/16
--- OUTSIDE RECORDS SUMMARY | 2024-08-17 15:21 | XMS_ITS | Encounter Summary ---
Author Organization [facility] Care Team Providers Care Magazine Hand Name Role Phone Darlin Kingston Primary Care Provider [phone] Silke Petit MD Primary Care Provider [phone] Darlin Kingston Primary Care Provider [phone] Ruben Mahmood MD Primary Care Provider [phone] Encounter Details Date Type Department Care Team (Latest Contact Info) Description 06/19/2016 Orders Only [facility]INCON[facility] ProviderRosendo MD [address] [place] [address] Social History Tobacco Use Types Packs/Day Years Used Date Smoking Tobacco: Never Assessed Comments Unknown Sex and Gender Information Value Date Recorded Sex Assigned at Not on file Legal Sex Female 12:21 AM DISTRIBUTION LEAD Gender Identity Not on file Sexual Orientation Not on file documented as of this encounter Plan of Treatment Not on file documented as of this encounter Procedures Procedure Name Priority Date/Time Associated Diagnosis Comments PROCEDURE - RESULT 06/19/2016 12 :00 AM DISTRIBUTION LEAD documented in this encounter Results * PROCEDURE - RESULT (06/19/2016 12:00 AM DISTRIBUTION LEAD) Narrative 06/19/2016 12:00 AM DISTRIBUTION LEAD Ordered by an unspecified provider. Historical Provider Final Res ult documented in this encounter Visit Diagnoses Not on filedocumented in this encounter Care Teams Magazine Hand Relationship Specialty Start Date End Date Darlin Kingston PA [address] [place] [address] PCP - General 10/12/16 11/05/16 Silke Petit MD [address] [place] [address] PCP - General 06/19/11 10/11/16 Darlin Kingston PA [address] [place] [address] PCP - General 11/06/16 11/12/16 Ruben Mahmood MD [address] [place] [address] PCP - General 11/13/16 documented as of this encounter
--- OUTSIDE RECORDS SUMMARY | 2024-08-17 15:21 | XMS_ITS | Referral Summary ---
Author Organization [facility] Address [address] [place] [address] Care Team Providers Care Dispensing Lead Name Role Phone Ruben Mahmood MD Primary Care Provider [phone] Allergies Active Allergy Reactions Criticality Noted Date [...] Pneumococcal Polysaccharide PPV23 09/08/2018 ZOSTER Recombinant 06/11/2020,04/03/2020 Social History Tobacco Use Types Packs/Day Years Used Date Smoking Tobacco: Former Tobacco Cessation:Counseling Given: No Personal Safety Answer Date Recorded Getting School Help Needed Not on file 09/06 Comments Unknown Sex and Gender Information Value Date Recorded Sex Assigned at Not on file Legal Sex Female 12:21 AM WEAVER HAND LOOM Gender Identity Not on file Sexual Orientation Not on file Last Filed Vital Signs Vital Sign Reading Time Taken Comments Blood Pressure 143/84 10/16/2020 10:00 AM CDT Pulse 80 10/16/2020 10:00 AM CDT Temperature 36.6 C (97.8 F) 06/18/2017 7:28 AM WEAVER HAND LOOM Respiratory Rate - - Oxygen Saturation 100% 06/18/2017 7:28 AM WEAVER HAND LOOM Inhaled Oxygen Concentration - - Weight 73 kg (161 lb) 10/16/2020 10:00 AM CDT Height 156.2 cm (5' 1.5 ) 10/16/2020 10:00 AM CD T Body Mass Index 29.93 10/16/2020 10:00 AM CDT Plan of Treatment Not on file [facility] Care Teams Dispensing Lead Relationship Specialty Start Date End Date Ruben Mahmood MD [address] [place] [address] [place] [address] PCP - General 11/13/16
--- OUTSIDE RECORDS SUMMARY | 2024-08-17 15:21 | XMS_ITS | Encounter Summary ---
Author Organization [facility] Healthcare Address [address] [place] [address] Care Team Providers Care Outside Residential Sales Professional Name Role Phone Ruben Mahmood MD Primary Care Provider [phone] Encounter Details Date Type Department Care Team (Late st Contact Info) Description 10/15/[address] 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
--- OUTSIDE RECORDS SUMMARY | 2024-08-17 15:21 | XMS_ITS | Encounter Summary ---
Author Organization [facility] Facility Care Team Providers Care Consumer Loan Officer Name Role Phone Darlin Kingston Primary Care Provider [phone] Silke Petit MD Primary Care Provider [phone] Darlin Kingston Primary Care Provider [phone] Ruben Mahmood MD Primary Care Provider [phone] Encounter Details Date Type Department Care Team (Latest Contact Info) Description 07/03/2016 Orders Only [facility] CLINCONV ProviderRosendo MD [address] [place] [address] Social History Tobacco Use Types Packs/Day Years Used Date Smoking Tobacco: Never Assessed Comments Unknown Sex and Gender Information Value Date Recorded Sex Assigned at Not on file 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 Historical Provider Final Res ult documented in this encounter Visit Diagnoses Not on filedocumented in this encounter Care Teams Consumer Loan Officer Relationship Specialty Start Date End Date Darlin Kingston PA [address] [place] [address] PCP - General 10/12/16 11/05/16 Silke Petit MD [address] [place] [address] PCP - General 06/19/11 10/11/16 Darlin Kingston PA [address] [place] [address] PCP - General 11/06/16 11/12/16 Ruben Mahmood MD [address] [place] [address] PCP - General 11/13/16 documented as of this encounter
== END 2024-08-17 15:14 | disposition home or self-care (01) ==
PROVIDERS: PCP Family Medicine; Visit Provider Family Medicine
DX: Z12.31 Encounter for screening mammogram for malignant neoplasm of breast (principal)
CPT/HCPCS: 77063; 77067

== ENCOUNTER 2025-05-08 14:58 | Outpatient (CLI) | payer MEDICARE, SELFPAY ==
--- NOTE | ~2025-05-08 | DEXA_ITS ---
Bone Density Report Name: NATALY PHELPS Age: 69 Sex: Female Ethnicity: White Date of : 1955 Indication: postmenopausal osteoporosis; Referring Provider: JEAN MARIE WILSON Study: Bone densitometry was performed. Exam Date: May 08, 2025 Accession number: [id number] Bone Density: Region BMD T-score Z-score Classification AP Spine(L1-L4) 1.212 1.5 3.7 Normal Femoral Neck (Left) 0.558 -2.6 -0.7 Osteoporosis Total Hip (Left) 0.676 -2.2 -0.6 Osteopenia Femoral Neck (Right) 0.522 -2.9 -1.1 Osteoporosis Total Hip (Right) 0.572 -3.0 -1.4 Osteoporosis Total Hip Mean 0.624 -2.6 -1.0 Osteoporosis World Health Organization criteria for BMD impression classify patients as: Normal (T-score at or above -1.0), Osteopenia (T-score between -1.0 and -2.5), or Osteoporosis (T-score at or below -2.5). 10-year Fracture Risk: FRAX not reported because: Some T-score for Spine Total or Hip Total or Femoral Neck at or below -2.5 Previous Exams: Region Exam Age BMD T-score BMD Change BMD Change Date g/cm2 vs Baseline vs Previous Total Hip(Left) 05/08/2025 69 0.676 -2.2 0.029 (4.4%)* 0.029 (4.4%)* 12/27/2019 64 0.647 -2.4 Total Hip(Right) 05/08/2025 69 0.572 -3.0 -0.034 (-5.6%) -0.034 (-5.6%) 12/27/2019 64 0.606 -2.8 *Denotes significance at 95% confidence level, LSC for Total Hip = 0.027 g/cm2 Impression: The patient has osteoporosis, based on the Right Total Hip T-score. The BMD for the Total Hip(Right) decreased, changing by -5.6% since the last DXA exam. Discussion: INCREASED RISK OF FRACTURE. BONE DENSITY IS UNDESIRABLY LOW AT ONE OR MORE SKELETAL SITES, CONSISTENT WITH POSTMENOPAUSAL OSTEOPOROSIS. This patient's lowest T-score meets the World Health Organization's (WHO) criteria for osteoporosis at one or more sites (T-score -2.5 or below). In untreated patients, the risk of osteoporotic fracture increases approximately two-fold for each 1.0 SD decrease in T-score. Low bone density is not the only risk factor for fracture; also consider factors such as patient's age, frailty or poor health, risk of falling, risk of injury, previous osteoporotic fracture, family history of osteoporosis, cigarette smoking, low body weight, etc. Not everyone with low bone mineral density has osteoporosis; osteomalacia and other metabolic bone disorders should also be considered. Patients who have osteoporosis should be evaluated for specific diseases and conditions (secondary causes) that may cause or contribute to bone loss. The [place] [employer] Clinical Endocrinologists (AACE) and National Osteoporosis Foundation (NOF) recommend pharmacologic intervention for all postmenopausal women whose T-score is in this range. The patient should follow a healthful lifestyle (good nutrition with adequate calcium and vitamin D, and appropriate weight-bearing exercise). Follow-Up: Consider a repeat BMD and Vertebral Fracture Assessment (VFA) exam in 2 years or sooner if medically necessary, to reassess this patient's status. Reported by: NYA on 05/08/2025 3:40:00 PM. Reviewed, dictated and finalized at location A.
--- OUTSIDE RECORDS SUMMARY | 2025-05-08 17:20 | XMS_ITS | Encounter Summary ---
Author Organization [facility] Facility Care Team Providers Care Wink Cutter Operator Name Role Phone Darlin Kingston Primary Care Provider Silke Petit MD Primary Care Provider [phone] Darlin Kingston Primary Care Provider [phone] Ruben Mahmood MD Primary Care Provider [phone] Encounter Details Date Type Department Care Team (Latest Contact Info) Description 07/03/2016 Orders Only MMG CLINCONV ProviderRosendo MD [address] [place] [address] Social History Tobacco Use Types Packs/Day Years Used Date Smoking Tobacco: Never Assessed Comments Unknown Sex and Gender Information Value Date Recorded Sex Assigned at Not on file 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 Historical Provider Final Res ult documented in this encounter Visit Diagnoses Not on filedocumented in this encounter Care Teams Wink Cutter Operator Relationship Specialty Start Date End Date Darlin Kingston PA [address] [place] [address] PCP - General 10/12/16 11/05/16 Silke Petit MD [address] [place] [address] PCP - General 06/19/11 10/11/16 Darlin Kingston PA [address] [place] [address] PCP - General 11/06/16 11/12/16 Ruben Mahmood MD [address] [place] [address] PCP - General 11/13/16 documented as of this encounter
--- OUTSIDE RECORDS SUMMARY | 2025-05-08 17:20 | XMS_ITS | Clinical Summary ---
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 Gender Identity Not on file Sexual Orientation Not on file Obstetrics History Last Filed Vital Signs Vital Sign Reading Time Taken Comments Blood Pressure 143/84 10/16/2020 10:00 AM CDT Pulse 80 10/16/2020 10:00 AM CDT Temperature 36.6 C (97.8 F) 06/18/2017 7:28 AM WATCH PARTS INSPECTOR Respiratory Rate - - Oxygen Saturation 100% 06/18/2017 7:28 AM WATCH PARTS INSPECTOR Inhaled Oxygen Concentration - - Weight 73 kg (161 lb) 10/16/2020 10:00 AM CDT Height 156.2 cm (5' 1.5) 10/16/2020 10:00 AM CD T Body Mass Index 29.93 10/16/2020 10:00 AM CDT Plan of Treatment Not on file [facility] Care Teams Deputy County Clerk Relationship Specialty Start Date End Date Ruben Mahmood MD [address] [place]RAZA [address] PCP - General 11/13/16
--- OUTSIDE RECORDS SUMMARY | 2025-05-08 17:20 | XMS_ITS | Encounter Summary ---
Author Organization [facility] Healthcare Address [address] [place] [address] Care Team Providers Care Rouge Sifter Name Role Phone Ruben Mahmood MD Primary Care Provider [phone] Encounter Details Date Type Department Care Team (Late st Contact Info) Description 10/15/2020 Telephone [facility] Radiology [address] [place] [address] Truong Whitfield MD [address] [place] [address] DEPT NEUROSURGERY, [address] [address] Social History Tobacco Use Types Packs/Day Years Used Date Smoking Tobacco: Former Comments Unknown Sex and Gender Information Value Date Recorded Sex Assigned at Not on file 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
--- OUTSIDE RECORDS SUMMARY | 2025-05-08 17:20 | XMS_ITS | Patient Health Record ---
Author Organization [facility] Address [address] [facility] [address] [place] [address] Support Name Relationship Address Phone Gisela Fisher Guarantor Unknown [phone] Reason For Referral No Information Plan Of Treatment No Information Insurance Providers Payer Name Payer Address Payer Phone Subscriber Number Group Number Insured Name Patient Relationship to Insured Coverage Start Date Coverage End Date [employer] PPO/[employer] te [address] [place] [address] [phone] [id number] Gisela Fisher Self - patient is the insured 1
--- OUTSIDE RECORDS SUMMARY | 2025-05-08 17:20 | XMS_ITS | Clinical Summary ---
Author Organization [facility] Address [address] [place] [address] Care Team Providers Care Professional Model Name Role Phone Unavailable Primary Care Provider [...] 1 - Tdap) 1972 Mammogram Screening 1993 Pneumococcal Vaccine: 50+ Ye ars (1 of 1 - PCV) 2003 Zoster Vaccines (1 of 2) 2003 Dexa Scan (General) 2018 COVID-19 Vaccine ( - 2024-2 6 season) 2025 Influenza Adult (#1) 2025 RSV Immunization or 60+ Years (1 - 1-dose 75+ series) 2028 Hepatitis A Vaccines Aged Out No long er eligible based on patient's age to complete this topic Meningococcal B Vaccine Aged Out No l onger eligible based on patient's age to complete this topic Meningococcal Vaccine Aged Out No stanley wale eligible based on patient's age to complete this topic RSV Immunizations Under 20 Months Aged Out No longer eligible based on patient's age to complete this topic
--- OUTSIDE RECORDS SUMMARY | 2025-05-08 17:20 | XMS_ITS | Encounter Summary ---
Author Organization [facility] Facility Care Team Providers Care River Rat Name Role Phone Darlin Kingston Primary Care Provider [phone] Silke Petit MD Primary Care Provider [phone] Darlin Kingston Primary Care Provider [phone] Ruben Mahmood MD Primary Care Provider Encounter Details Date Type Department Care Team (Latest Contact Info) Description 06/19/2016 Orders Only MMG CLINCONV ProviderRosendo MD [address] [place] [address] Social History Tobacco Use Types Packs/Day Years Used Date Smoking Tobacco: Never Assessed Comments Unknown Sex and Gender Information Value Date Recorded Sex Assigned at Not on file Legal 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 Historical Provider Final Res ult documented in this encounter Visit Diagnoses Not on filedocumented in this encounter Care Teams River Rat Relationship Specialty Start Date End Date Darlin Kingston PA [address] [place] [address] PCP - General 10/12/16 11/05/16 Silke Petit MD [address] [place] [address] PCP - General 06/19/11 10/11/16 Darlin Kingston PA [address] [place] [address] PCP - General 11/06/16 11/12/16 Ruben Mahmood MD [address] [place] [address] PCP - General 11/13/16 documented as of this encounter
== END 2025-05-08 14:59 | disposition home or self-care (01) ==
LOC: ANHFOHIMG 14:59
PROVIDERS: PCP Nurse Practitioner Family; Visit Provider Nurse Practitioner Family
DX: Z78.0 Asymptomatic menopausal state (principal); M81.0 Age-related osteoporosis without current pathological fracture; M85.852 Other specified disorders of bone density and structure, left thigh
CPT/HCPCS: 77080